=== PATIENT | female | born 1955 | race Caucasian/White ===

== ENCOUNTER → 2018-12-07 15:01 | Outpatient (CLI) | payer BC, SELFPAY ==
--- NOTE | 2018-12-07 | DI.MG.S_ITS ---
BILATERAL DIGITAL SCREENING MAMMOGRAM 3D/2D WITH CAD: 12/07/2018 CLINICAL: Routine screening. Comparison is made to exams dated: 04/17/2017 mammogram, 12/07/2015 mammogram, and 12/02/2014 mammogram - [facility]. The tissue of both breasts is predominantly fatty. Current study was also evaluated with a Computer Aided Detection (CAD) system. There is a focal asymmetry in the right breast at 12 o'clock middle depth. No other significant masses, calcifications, or other findings are seen in either breast. IMPRESSION: INCOMPLETE: NEEDS ADDITIONAL IMAGING EVALUATION The focal asymmetry in the right breast is indeterminate. Additional views with possible ultrasound are recommended. This exam was interpreted at Station ID: [id number]. NOTE: For mammograms, a report in lay terms will be sent to the patient. Approximately 15% of breast malignancies will not be visualized mammographically. In the management of a palpable breast mass, a negative mammogram must not discourage biopsy of a clinically suspicious lesion. Electronically Signed By: Salome hancock/ki:12/07/2018 16:40:38 letter sent: Additional Imaging Needed ACR BI-RADS Category 0: Incomplete 3340F
== END ==
PROVIDERS: PCP Nurse Practitioner Family; Visit Provider Nurse Practitioner Family
DX: Z12.31 Encounter for screening mammogram for malignant neoplasm of breast (principal)
CPT/HCPCS: 77063; 77067

== ENCOUNTER → 2018-12-25 13:35 | Outpatient (CLI) | payer BC, SELFPAY ==
--- NOTE | 2018-12-25 | DI.MG.S_ITS ---
UNILATERAL RIGHT DIGITAL DIAGNOSTIC MAMMOGRAM 3D/2D WITH ADDITIONAL VIEWS: 12/25/2018 CLINICAL: Additional evaluation requested from prior study. Comparison is made to exams dated: 12/07/2018 mammogram, 04/17/2017 mammogram, and 12/07/2015 mammogram - [facility]. The tissue of right breast is predominantly fatty. There is 0.3 cm oval low density focal asymmetry with an indistinct and circumscribed margin in the right breast at 12 o'clock anterior depth. No other significant masses or calcifications are seen in the breast. IMPRESSION: INCOMPLETE: NEEDS ADDITIONAL IMAGING EVALUATION The 0.3 cm oval low density focal asymmetry in the right breast is indeterminate. An ultrasound is recommended. This exam was interpreted at Station ID: [id number]. NOTE: For mammograms, a report in lay terms will be sent to the patient. Approximately 15% of breast malignancies will not be visualized mammographically. In the management of a palpable breast mass, a negative mammogram must not discourage biopsy of a clinically suspicious lesion. Electronically Signed By: William perez/ki:12/25/2018 14:33:16 copy to: Leanna Valenzuela letter sent: Need Ultrasound ACR BI-RADS Category 0: Incomplete 3340F
--- NOTE | 2018-12-25 | DI.US.S_ITS ---
LIMITED ULTRASOUND OF RIGHT BREAST AND AXILLA: 12/25/2018 CLINICAL: Patient returns today to evaluate a density in the right breast. Comparison is made to exams dated: 12/25/2018 mammogram, 12/07/2018 mammogram, 04/17/2017 mammogram, 12/07/2015 mammogram, and 12/02/2014 mammogram - [facility]. Color flow and real-time ultrasound of the right breast 12 o'clock, and axilla regions were performed on the areas of interest. There is 0.2 cm x 0.3 cm x 0.3 cm oval mass with an indistinct margin in the right breast at 12 o'clock anterior depth. This oval mass is hypoechoic. This correlates with mammography findings. Color flow imaging demonstrates that there is no vascularity present. No abnormalities were seen sonographically in the right axilla. IMPRESSION: SUSPICIOUS OF MALIGNANCY The 0.2 cm x 0.3 cm x 0.3 cm oval mass in the right breast is at a low suspicion for malignancy. An ultrasound guided biopsy is recommended. The findings were discussed with the patient at the conclusion of the study by Dr. Walton. This exam was interpreted at Station ID: [id number]. Electronically Signed By: William Youssef M.D. ddreva/:12/25/2018 17:30:48 copy to: Leanna Valenzuela letter sent: Biopsy Required Ultrasound BI-RADS: 4a Suspicious abnormality - low suspicion for malignancy
== END ==
PROVIDERS: PCP Nurse Practitioner Family; Visit Provider Nurse Practitioner Family
DX: R92.8 Other abnormal and inconclusive findings on diagnostic imaging of breast (principal); N63.10 Unspecified lump in the right breast, unspecified quadrant
CPT/HCPCS: 76642; 77065; G0279

== ENCOUNTER → 2019-01-03 07:32 | Outpatient (CLI) | payer BC, SELFPAY ==
--- NOTE | 2019-01-03 | DI.MG.S_ITS ---
PROCEDURE: MM DIAGNOSTIC MAMMO UNILAT RT2D COMPARISON: None. INDICATIONS: RIGHT BREAST MASS FINDINGS: IMPRESSION: Dictated by: Javier Levin M.D. on 01/03/2019 at 15:57 Approved by: Javier Levin M.D. on 01/03/2019 at 15:59
--- NOTE | 2019-01-03 | PATH_ITS ---
[facility] Accession Number: [id number] . 01 Material submitted: . breast - RIGHT BREAST MASS . 01 Diagnosis: Right Breast Mass, Biopsy: Mature fibroadipose tissue with few benign breast ducts with focal apocrine metaplasia; see comment. MNT/01/07/2019 . 01 Comment: The findings may not account for the clinically described mass. Differential diagnosis includes lipoma. Clinical and radiographic correlation is recommended. Findings were discussed with Dr. Castañeda (radiologist) on 01/07/2019 on 4:15 pm. . 01 Electronically signed: . Eden Almazan MD, Pathologist NPI- [id number] . 01 Gross description: . Received one formalin-filled container labeled with the patient's name and labeled right breast mass. Specimen is received with a plastic filter in container, sample loose in container and consists of multiple yellow-ramirez, cylindrical-shaped portions of tissue and blood which aggregate to 2.0 x 0.7 x 0.3 cm. The specimen is filtered and entirely submitted in one cassette. Collection date: 01/03/2019. Possible collection time per requisition: 858. Total fixation time: 12 hours, up to 24. (DC:[id number]) /FRR . 01 Microscopic: . Deeper levels examined. . 01 Pathologist provided ICD-10: N63.10 . 01 CPT . 853378 Performed at: [address], [place], [place] [id number] MD William Nicole MD Phone: [phone]
--- NOTE | 2019-01-03 | DI.US.S_ITS ---
PROCEDURE: US BX BREAST PERC W VAC DEVICE COMPARISON: None. INDICATIONS: RIGHT BREAST MASS FINDINGS: IMPRESSION: Dictated by: Javier Levin M.D. on 01/03/2019 at 15:53 Approved by: Javier Levin M.D. on 01/03/2019 at 15:56
== END ==
PROVIDERS: PCP Nurse Practitioner Family; Visit Provider Internal Medicine
DX: N60.81 Other benign mammary dysplasias of right breast (principal)
CPT/HCPCS: 19083; 77065

== ENCOUNTER → 2019-01-09 12:34 | Outpatient (CLI) | payer BC, SELFPAY ==
--- NOTE | 2019-01-09 | DI.RAD.S_ITS ---
PROCEDURE: XR CERVICAL SPINE 2V OR 3V INDICATIONS: RIGHT ARM PAIN WITH NUMBNESS TECHNIQUE: 3 view(s) of the cervical spine were acquired. COMPARISON: None. FINDINGS: Bones: No fractures or dislocations to the T1 level. The lateral masses of C1 appear intact on the odontoid view. No suspicious bony lesions. Mild to moderate degenerative disc disease at C5-6. Soft tissues: No prevertebral soft tissue swelling. IMPRESSION: Mild to moderate degenerative disc disease C5-6. Dictated by: Darshan Galindo M.D. on 01/09/2019 at 13:49 Approved by: Darshan Galindo M.D. on 01/09/2019 at 13:49
== END ==
PROVIDERS: PCP Nurse Practitioner Family; Visit Provider Internal Medicine
DX: M79.601 Pain in right arm (principal); R20.0 Anesthesia of skin; M50.322 Other cervical disc degeneration at C5-C6 level
CPT/HCPCS: 72040

== ENCOUNTER → 2019-04-04 14:30 | Outpatient (CLI) | payer BC, SELFPAY ==
--- NOTE | 2019-04-04 | DI.RAD.S_ITS ---
PROCEDURE: XR CHEST 2V INDICATIONS: COUGH TECHNIQUE: 2 views of the chest were acquired. COMPARISON: None. FINDINGS: Surgical changes and devices: Cholecystectomy clips. Lungs and pleura: Lungs are clear. No pleural effusions or pneumothorax. Mediastinum: Mediastinal contours are normal. Heart size is normal. Bones and chest wall: No suspicious bony abnormalities. Soft tissues appear unremarkable. IMPRESSION: No consolidation to suggest pneumonia. Dictated by: Santiago Davalos M.D. on 04/04/2019 at 17:29 Approved by: Santiago Davalos M.D. on 04/04/2019 at 17:30
== END ==
PROVIDERS: PCP Nurse Practitioner Family; Visit Provider Nurse Practitioner Family
DX: R05 Cough (principal)
CPT/HCPCS: 71046

== ENCOUNTER → 2019-07-10 14:03 | Outpatient (CLI) | payer BC, SELFPAY ==
--- NOTE | 2019-07-10 | DI.US.S_ITS ---
LIMITED ULTRASOUND OF RIGHT BREAST: 07/10/2019 CLINICAL: 6 month follow-up biopsy. Comparison is made to exams dated: 07/10/2019 mammogram, 01/03/2019 ultrasound biopsy, 01/03/2019 mammogram, 12/25/2018 ultrasound, 12/25/2018 mammogram, and 12/07/2018 mammogram - [facility]. Color flow and real-time ultrasound of the right breast 12 o'clock region were performed. Sotelo scale images of the real-time examination were reviewed. There is redemonstration of a an echogenic circular biopsy clip in the right breast 12 o'clock position 4 cm from the nipple demonstrating posterior shadowing artifact. There is no suspicious vascularity on Doppler imaging. No convincing persistent or recurrent mass is identified at the biopsy site, or along the 12 o'clock position of the right breast. IMPRESSION: PROBABLY BENIGN Redemonstrated biopsy clip in the right breast at 12 o'clock position 4 cm from the nipple demonstrating posterior shadowing artifact. No suspicious vascularity or convincing persistent/recurrent mass is identified at the biopsy site or along the 12 o'clock position of the right breast. A follow-up diagnostic mammogram with possible ultrasound in 6 months is recommended to demonstrate stability, and the patient is also due for bilateral annual mammography at that time. The patient is advised to monitor her breasts and to return sooner for re-evaluation should she feel anything grow or change. This exam was interpreted at Station ID: [id number]. Electronically Signed By: Isaias Plaza M.D. ecl/:07/10/2019 15:30:23 copy to: Leanna Valenzuela letter sent: Followup Recommended Ultrasound BI-RADS: 3 Probably benign
--- NOTE | 2019-07-10 | DI.MG.S_ITS ---
UNILATERAL RIGHT DIGITAL DIAGNOSTIC MAMMOGRAM 3D/2D SHORT-TERM FOLLOW-UP: 07/10/2019 CLINICAL: Patient returns for a 6 month follow up of the right breast. Post biopsy. Comparison is made to exams dated: 01/03/2019 mammogram, 12/25/2018 mammogram, 12/07/2018 mammogram, 01/03/2019 ultrasound biopsy, and 12/25/2018 ultrasound [facility]. There are scattered fibroglandular elements in right breast. Previously identified oval focal asymmetry of the right breast at 12 o'clock position (described as a focal asymmetry in the right breast at 12 o'clock middle depth on screening mammogram of 12/07/18 and 0.3 cm oval low density focal asymmetry with an indistinct and circumscribed margin in the right breast at 12 o'clock anterior depth on diagnostic mammogram of 12/25/18) is no longer well seen on the current exam. There is a biopsy clip in the right breast at 12 o'clock position middle depth. There is an overlying linear scar marker. No other significant masses, calcifications, or other findings are seen in the breast. IMPRESSION: INCOMPLETE: NEEDS ADDITIONAL IMAGING EVALUATION Previously identified oval focal asymmetry of the right breast at 12 o'clock position (described as a focal asymmetry in the right breast at 12 o'clock middle depth on screening mammogram of 12/07/18 and 0.3 cm oval low density focal asymmetry with an indistinct and circumscribed margin in the right breast at 12 o'clock anterior depth on diagnostic mammogram of 12/25/18) is no longer well seen on the current exam, and there is a new biopsy clip in the right breast at 12 o'clock middle depth. A targeted ultrasound is recommended for further evaluation. This exam was interpreted at Station ID: [id number]. NOTE: For mammograms, a report in lay terms will be sent to the patient. Approximately 15% of breast malignancies will not be visualized mammographically. In the management of a palpable breast mass, a negative mammogram must not discourage biopsy of a clinically suspicious lesion. Electronically Signed By: Isaias Plaza M.D. ecl/:07/10/2019 15:01:27 ACR BI-RADS Category 0: Incomplete 3340F
== END ==
PROVIDERS: PCP Nurse Practitioner Family; Visit Provider Internal Medicine
DX: R92.8 Other abnormal and inconclusive findings on diagnostic imaging of breast (principal); N64.89 Other specified disorders of breast
CPT/HCPCS: 76642; 77065; G0279

== ENCOUNTER 2019-10-15 17:44 | Emergency (ER) | payer BC, SELFPAY ==
[2019-10-15 17:51] VITALS: BP 136/91; PULSE 90; RESP 28; TEMP 36.6; O2SAT 100; BMI 36.3
[2019-10-15] MEDS: KETOROLAC 60 MG/2 ML VIAL 30 MG IV (18:12)
[2019-10-15] MEDS: SODIUM CHLORIDE 0.9% 1,000 ML 1000 ML IV (18:12)
[2019-10-15] MEDS: ONDANSETRON 4 MG/2 ML INJ IV (18:13)
--- NOTE | 2019-10-15 18:17 | PC.NURSE ---
Left flank pain with nausea and vomiting and diarrhea starting a few hours ago.
[2019-10-15 18:40] LABS: Add Manual Diff / Slide Review NO; Basophils Absolute Auto 0 /uL (0-100); Basophils Percent Auto 0.2 % (0-2); Eosinophils Absolute Auto 0 /uL (0-450); Eosinophils Percent Auto 0.1 % (2-4); Hematocrit 41.3 % (36-46); Hemoglobin 14.4 g/dL (12.0-16.0); Lymphocytes Absolute Auto 1400 /uL (1100-4500); Lymphocytes Percent Auto 14.3 % (25-40); Mean Corpuscular HGB Conc 34.8 % (30-36); Mean Corpuscular Hemoglobin 31.4 PG (26-34); Mean Corpuscular Volume 90.2 fL (80-100); Monocytes Absolute Auto 400 /uL (0-900); Neutrophils Absolute Auto 8200 /uL (1500-7000); Neutrophils Percent Auto 81.4 % (50-75); Platelet Count 331 X10^3/uL (150-400); Red Blood Cell Count 4.58 X10^6/uL (4.0-5.2); Red Cell Distribution Width 13.6 % (11.6-14.8)
[2019-10-15 18:47] LABS: Prothrombin Time 11.3 SECONDS (10.1-12.7)
[2019-10-15 18:50] LABS: PTT Partial Thromboplastin Tim 30 SECONDS (26.4-36.2)
[2019-10-15 18:51] LABS: Alanine Aminotransferase 25 IU/L (<35); Albumin 5.1 g/dL (3.5-5.0); Albumin Globulin Ratio 1.5 (1.0-2.8); Alkaline Phosphatase 90 U/L (38-126); Aspartate Aminotransferase 35 IU/L (14-36); BUN Creatinine Ratio 21.7 (6-22); Bilirubin Total 0.5 mg/dL (0.2-1.3); Blood Urea Nitrogen 13 mg/dL (7-17); Calcium 10.1 mg/dL (8.4-10.2); Carbon Dioxide 22 mmol/L (22-32); Chloride 101 mmol/L (98-107); Estimated Glomerular Filt Rate > 60.0 mL/min (>60); Globulin 3.5 g/dL (1.7-4.1); Glucose 164 mg/dL (80-110); HEMOLYSIS < 15 (0-50); Lipase 112 U/L (23-300); Potassium 3.5 mmol/L (3.4-5.1); Sodium 139 mmol/L (137-145); Total Protein 8.6 g/dL (6.3-8.2)
--- NOTE | 2019-10-15 18:58 | PC.NURSE ---
Ambulated with assistance to provide urine specimen.
[2019-10-15 19:00] VITALS: BP 170/87; PULSE 82; RESP 17; O2SAT 98
--- NOTE | 2019-10-15 19:06 | DI.CT.S_ITS ---
PROCEDURE: CT ABDOMEN PELVIS W CON INDICATIONS: flank pain, vomiting, pain TECHNIQUE: After the administration of intravenous contrast, 5 mm thick sections acquired from the diaphragm to the symphysis. 5 mm coronal and sagittal reformats were acquired. For radiation dose reduction, the following was used: automated exposure control, adjustment of mA and/or kV according to patient size. COMPARISON: None. FINDINGS: Image quality: Excellent. ABDOMEN: Lung bases: Lung bases are clear. Heart size is normal. Small hiatal hernia. Solid organs: Liver is normal in size and enhancement. Gallbladder is surgically absent. Biliary system is non dilated. Pancreas enhances normally. Spleen is normal in size and enhancement. No adrenal nodules. Kidneys demonstrate normal size and enhancement, without hydronephrosis. There is cortical scarring along the posterior left upper pole cortex. Peritoneum and bowel: Decompression of the entire colon. Multiple diverticuli are seen in the sigmoid colon and there is mild resulting wall thickening. No definite pericolonic inflammation. There is mild mucosal hyperemia involving the rectum the stomach and small bowel loops are normal without obstruction.. No free fluid or air. Nodes and vessels: No retroperitoneal or mesenteric adenopathy by size criteria. Aorta and inferior vena cava are normal in size. Miscellaneous: No ventral hernias. PELVIS: Genitourinary: Bladder wall thickness is normal. The uterus is surgically absent. Ovaries appear normal. There is mild laxity of the pelvic floor. Miscellaneous: No inguinal hernias or adenopathy. Bones: No suspicious bony lesions. No vertebral body compression fractures. Degenerative facet disease in the low lumbar spine. IMPRESSION: 1. Diffuse colonic decompression may be secondary to spasm. 2. Mild mucosal hyperemia wall thickening mainly in the rectum may indicate mild proctitis. Correlate clinically. 3. Sigmoid diverticulosis with mild, wall thickening. Mild acute diverticulitis cannot be excluded. 4. No evidence of urinary calcification or obstruction. 5. Cholecystectomy and hysterectomy. 6. Small hiatal hernia. Dictated by: Yas Dos Santos M.D. on 10/15/2019 at 19:42 Approved by: Yas Dos Santos M.D. on 10/15/2019 at 19:48
[2019-10-15 20:00] VITALS: BP 169/86; PULSE 79; RESP 16; O2SAT 98
[2019-10-15 20:43] VITALS: BP 155/84; PULSE 77; O2SAT 100
[2019-10-15] MEDS: metroNIDAZOLE 250 MG TABLET 500 MG PO (20:56)
[2019-10-15] MEDS: ONDANSETRON 4 MG ODT PREPACK 1 BOTTLE MISC (20:56)
[2019-10-15] MEDS: HYDROCODONE/ACET 5/325 PREPACK 1 BOTTLE MISC (20:56)
[2019-10-15] MEDS: CIPROFLOXACIN 500 MG TABLET PO (20:57)
[2019-10-15] MEDS: ONDANSETRON 4 MG ODT SL (21:03)
--- NOTE | 2019-10-15 21:11 | ED.NAVMDI ---
HPI - Nausea/Vomiting/Diarrhea <RA Acharya - Last Filed: 10/15/19 22:11> General Chief complaint: Nausea/Vomiting/Diarrhea Stated complaint: VOMITING Time Seen by Provider: 10/15/19 18:02 Source: patient and family Mode of arrival: Wheelchair Limitations: no limitations History of Present Illness HPI Narrative: The patient is a 64-year-old female nonsmoker with history of cholecystectomy who presents with a chief complaint of sudden onset left flank pain 2 hours ago. She complains of nausea with vomiting, no fevers, did have some loose stools and diarrhea this morning. She has no history of kidney stones but is suspicious that she has 1. Her children all have kidney stones. She denies any dysuria urgency or frequency or blood in her urine. Related Data Previous Rx's Medication Instructions Recorded ciprofloxacin HCl [Cipro] 500 mg PO BID #20 tab 10/15/19 hydrocodone-acetaminophen [[place]] 1 tab PO Q4-6H PRN #7 tab 10/15/19 metronidazole [Flagyl] 500 mg PO Q8H 10 Days #30 tab 10/15/19 ondansetron 4 mg PO Q6H PRN #20 tab 10/15/19 Allergies Allergy/AdvReac Type Severity Reaction Status Date / Time ibuprofen Allergy Severe breathing Verified 10/15/19 17:56 issues Review of Systems <RA Acharya - Last Filed: 10/15/19 22:11> Review of Systems Narrative: GENERAL: Denies chills, fatigue, malaise, fever, sweats. HEENT: Denies sinus pain, ear pain, sore throat, difficulty swallowing, dizziness. RESPIRATORY: Denies dyspnea, cough, wheezing, hemoptysis, sputum. CARDIOVASCULAR: Denies chest pain, palpitations, orthopnea, edema, GASTROINTESTINAL: See HPI : See HPI MUSCULOSKELETAL: denies weakness, joint pain, or bony pain SKIN: Denies rash, skin lesions, or other NEUROLOGIC: Denies weakness, headache, numbness, change in speech, confusion, seizures, incoordination. PSYCHIATRIC: No concerning psychosocial issues. 12 point review of systems is negative except for those stated above Patient History <RA Acharya - Last Filed: 10/15/19 22:11> Social History Smoking Status: Never smoker Smoking Status: Never smoker Substance Use Type: does not use Exam <CHINO Acharya-BC - Last Filed: 10/15/19 22:11> Narrative Exam Narrative: GENERAL: This is a well-nourished, well-developed patient, appears uncomfortable actively vomiting HEAD: Atraumatic. Normocephalic. No temporal or scalp tenderness. EYES: Pupils equal round and reactive. Extraocular motions intact. No scleral icterus. No injection or drainage. ENT: Nose without bleeding, purulent drainage or septal hematoma. Throat without erythema, tonsillar hypertrophy or exudate. Uvula midline. Airway patent. NECK: Trachea midline. No JVD or lymphadenopathy. Supple, nontender, no meningeal signs. CARDIOVASCULAR: Regular rate and rhythm RESPIRATORY: Clear to auscultation. Breath sounds equal bilaterally. No wheezes, rales, or rhonchi. No cough. No increased respiratory effort. No accessory muscle use. GASTROINTESTINAL: Abdomen soft, non-tender, nondistended. No hepato-splenomegaly, or palpable masses. No guarding. Active bowel sounds all 4 quadrants. EXTREMITIES: No clubbing, cyanosis, or edema. No joint tenderness, effusion, or edema noted. BACK: Nontender without deformity or crepitance. No flank tenderness to left side. NEURO: AOx3. SKIN: No rash or erythema on visible skin Initial Vital Signs Initial Vital Signs: Vital Signs Temperature 97.9 F 10/15/19 17:51 Pulse Rate 90 10/15/19 17:51 Respiratory Rate 28 H 10/15/19 17:51 Blood Pressure 136/91 H 10/15/19 17:51 Pulse Oximetry 100 10/15/19 17:51 <Kimberly Phillip MD - Last Filed: 10/16/19 03:26> Initial Vital Signs Initial Vital Signs: Vital Signs Temperature 97.9 F 10/15/19 17:51 Pulse Rate 90 10/15/19 17:51 Respiratory Rate 28 H 10/15/19 17:51 Blood Pressure 136/91 H 10/15/19 17:51 Pulse Oximetry 100 10/15/19 17:51 Scores <CHINO Acharya-BC - Last Filed: 10/15/19 22:11> GCS Dennard coma scale eye opening: Spontaneous Dennard coma scale verbal response: Orientated [place] coma scale motor response: Obey commands Dennard coma scale total score: 15 Course <Annalisa Turner ROBOTICS TECHNICIAN-BC - Last Filed: 10/15/19 22:11> Orders Ordered: ED Orders 10/15/19 19:06 CT abdomen pelvis w con Stat Discontinued Medications Hydrocodone Bitart/Acetaminophen (Vicodin 5/325 Prepack) 1 bottle MISC SEEINSTR ONE Stop: 10/15/19 20:42 Last Admin: 10/15/19 20:56 Dose: 1 bottle Documented by: IVANIA Ciprofloxacin (Cipro) 500 mg PO NOW ONE Stop: 10/15/19 20:42 Last Admin: 10/15/19 20:57 Dose: 500 mg Documented by: IVANIA Sodium Chloride (Normal Saline 0.9%) 1,000 mls @ 1,000 mls/hr IV BOLUS ONE Stop: 10/15/19 19:04 Last Infusion: 10/15/19 20:52 Dose: 0 mls/hr Documented by: Admin: 10/15/19 18:12 Dose: 1,000 mls/hr Documented by: GEORGE Ketorolac Tromethamine (Toradol) 30 mg IV NOW ONE Stop: 10/15/19 18:06 Last Admin: 10/15/19 18:12 Dose: 30 mg Documented by: GEORGE Metronidazole (Metronidazole) 500 mg PO NOW ONE Stop: 10/15/19 20:42 Last Admin: 10/15/19 20:56 Dose: 500 mg Documented by: IVANIA Morphine Sulfate (Morphine) 4 mg IV NOW ONE Stop: 10/15/19 18:11 Last Admin: 10/15/19 20:47 Dose: Not Given Documented by: GEORGE Ondansetron HCl (Zofran) 4 mg IV NOW ONE Stop: 10/15/19 17:54 Last Admin: 10/15/19 18:13 Dose: 4 mg Documented by: GEORGE Ondansetron HCl (Zofran) 4 mg IV NOW ONE Stop: 10/15/19 18:11 Last Admin: 10/15/19 20:47 Dose: Not Given Documented by: GEORGE Ondansetron HCl (Zofran Odt) 4 mg SL NOW ONE Stop: 10/15/19 20:42 Last Admin: 10/15/19 21:03 Dose: 4 mg Documented by: GEORGE Ondansetron HCl (Zofran Odt Prepack) 1 bottle MISC SEEINSTR ONE Stop: 10/15/19 20:42 Last Admin: 10/15/19 20:56 Dose: 1 bottle Documented by: IVANIA Vital Signs Vital signs: Vital Signs - 8 hr 10/15/19 20:00 10/15/19 20:43 10/15/19 22:21 Pulse Rate 79 77 79 Respiratory Rate 16 17 Blood Pressure [Left Arm] 169/86 H 155/84 H 128/78 Pulse Oximetry 98 100 100 <Kimberly Phillip MD - Last Filed: 10/16/19 03:26> Orders Ordered: ED Orders 10/15/19 19:06 CT abdomen pelvis w con Stat Discontinued Medications Hydrocodone Bitart/Acetaminophen (Vicodin 5/325 Prepack) 1 bottle MISC SEEINSTR ONE Stop: 10/15/19 20:42 Last Admin: 10/15/19 20:56 Dose: 1 bottle Documented by: IVANIA Ciprofloxacin (Cipro) 500 mg PO NOW ONE Stop: 10/15/19 20:42 Last Admin: 10/15/19 20:57 Dose: 500 mg Documented by: IVANIA Sodium Chloride (Normal Saline 0.9%) 1,000 mls @ 1,000 mls/hr IV BOLUS ONE Stop: 10/15/19 19:04 Last Infusion: 10/15/19 20:52 Dose: 0 mls/hr Documented by: Admin: 10/15/19 18:12 Dose: 1,000 mls/hr Documented by: GEORGE Ketorolac Tromethamine (Toradol) 30 mg IV NOW ONE Stop: 10/15/19 18:06 Last Admin: 10/15/19 18:12 Dose: 30 mg Documented by: GEORGE Metronidazole (Metronidazole) 500 mg PO NOW ONE Stop: 10/15/19 20:42 Last Admin: 10/15/19 20:56 Dose: 500 mg Documented by: IVANIA Morphine Sulfate (Morphine) 4 mg IV NOW ONE Stop: 10/15/19 18:11 Last Admin: 10/15/19 20:47 Dose: Not Given Documented by: GEORGE Ondansetron HCl (Zofran) 4 mg IV NOW ONE Stop: 10/15/19 17:54 Last Admin: 10/15/19 18:13 Dose: 4 mg Documented by: GEORGE Ondansetron HCl (Zofran) 4 mg IV NOW ONE Stop: 10/15/19 18:11 Last Admin: 10/15/19 20:47 Dose: Not Given Documented by: GEORGE Ondansetron HCl (Zofran Odt) 4 mg SL NOW ONE Stop: 10/15/19 20:42 Last Admin: 10/15/19 21:03 Dose: 4 mg Documented by: GEORGE Ondansetron HCl (Zofran Odt Prepack) 1 bottle MISC SEEINSTR ONE Stop: 10/15/19 20:42 Last Admin: 10/15/19 20:56 Dose: 1 bottle Documented by: IVANIA Vital Signs Vital signs: Vital Signs - 8 hr 10/15/19 20:00 10/15/19 20:43 10/15/19 22:21 Pulse Rate 79 77 79 Respiratory Rate 16 17 Blood Pressure [Left Arm] 169/86 H 155/84 H 128/78 Pulse Oximetry 98 100 100 MDM - Nausea/Vomiting/Diarrhea <CHINO Acharya- - Last Filed: 10/15/19 22:11> Lab Data Result diagrams: 10/15/19 18:00 10/15/19 18:00 Labs: Lab Results 10/15/19 10/15/19 10/15/19 Range/Units 18:00 18:00 18:00 WBC 10.0 (4.5-11.0) X10^3/uL RBC 4.58 (4.0-5.2) X10^6/uL Hgb 14.4 (12.0-16.0) g/dL Hct 41.3 (36-46) % MCV 90.2 (80-100) fL MCH 31.4 (26-34) PG MCHC 34.8 (30-36) % RDW 13.6 (11.6-14.8) % Plt Count 331 (150-400) X10^3/uL Neut % (Auto) 81.4 H (50-75) % Lymph % (Auto) 14.3 L (25-40) % [place] % (Auto) 4.0 (3-14) % Eos % (Auto) 0.1 L (2-4) % Baso % (Auto) 0.2 (0-2) % Neut # (Auto) 8200 H (0923-4462) /uL Lymph # (Auto) 1400 (1217-8425) /uL [place] # (Auto) 400 (0-900) /uL Eos # (Auto) 0 (0-450) /uL Baso # (Auto) 0 (0-100) /uL PT 11.3 (10.1-12.7) SECONDS INR 1.0 (0.9-1.3) APTT 30 (26.4-36.2) SECONDS Sodium 139 (137-145) mmol/L Potassium 3.5 (3.4-5.1) mmol/L Chloride 101 (98-107) mmol/L Carbon Dioxide 22 (22-32) mmol/L BUN 13 (7-17) mg/dL Creatinine 0.60 (0.52-1.04) mg/dL Estimated GFR > 60.0 (>60) mL/min BUN/Creatinine Ratio 21.7 (6-22) Glucose 164 H (80-110) mg/dL Calcium 10.1 (8.4-10.2) mg/dL Total Bilirubin 0.5 (0.2-1.3) mg/dL AST 35 (14-36) IU/L ALT 25 (<35) IU/L Alkaline Phosphatase 90 (38-126) U/L Total Protein 8.6 H (6.3-8.2) g/dL Albumin 5.1 H (3.5-5.0) g/dL Globulin 3.5 (1.7-4.1) g/dL Albumin/Globulin Ratio 1.5 (1.0-2.8) Lipase 112 (23-300) U/L Urine Dip Bedside Urine Glucose Negative Bedside Urine Bilirubin - Negative Bedside Urine Ketone +++ 80 Urine Specific [place] 1.015 Bedside Urine Occult Blood - Negative Bedside Urine pH 8.0 Bedside Urine Protein +/- 15 Bedside Urine Urobilinogen - Negative Bedside Urine Nitrite - Negative Bedside Urine Leukocytes - Negative Esterase Imaging Data CT scan - abdomen/pelvis: Radiologist's Impression: [address] [id number] [address] Scan Report Signed Patient: Annette Davis LMR#: [id number] : 7Acct:[id number] Age/Sex: 64 / FDate of Service: 10/15/19 Loc: ED Accession Number: [id number] Procedure: CT abdomen pelvis w con Ordering Provider: Annalisa TurnerBC PROCEDURE: CT ABDOMEN PELVIS W CON INDICATIONS: flank pain, vomiting, pain TECHNIQUE: After the administration of intravenous contrast, 5 mm thick sections acquired from the diaphragm to the symphysis. 5 mm coronal and sagittal reformats were acquired. For radiation dose reduction, the following was used: automated exposure control, adjustment of mA and/or kV according to patient size. COMPARISON: None. FINDINGS: Image quality: Excellent. ABDOMEN: Lung bases: Lung bases are clear. Heart size is normal. Small hiatal hernia. Solid organs: Liver is normal in size and enhancement. Gallbladder is surgically absent. Biliary system is non dilated. Pancreas enhances normally. Spleen is normal in size and enhancement. No adrenal nodules. Kidneys demonstrate normal size and enhancement, without hydronephrosis. There is cortical scarring along the posterior left upper pole cortex. Peritoneum and bowel: Decompression of the entire colon. Multiple diverticuli are seen in the sigmoid colon and there is mild resulting wall thickening. No definite pericolonic inflammation. There is mild mucosal hyperemia involving the rectum the stomach and small bowel loops are normal without obstruction.. No free fluid or air. Nodes and vessels: No retroperitoneal or mesenteric adenopathy by size criteria. Aorta and inferior vena cava are normal in size. Miscellaneous: No ventral hernias. PELVIS: Genitourinary: Bladder wall thickness is normal. The uterus is surgically absent. Ovaries appear normal. There is mild laxity of the pelvic floor. Miscellaneous: No inguinal hernias or adenopathy. Bones: No suspicious bony lesions. No vertebral body compression fractures. Degenerative facet disease in the low lumbar spine. IMPRESSION: 1. Diffuse colonic decompression may be secondary to spasm. 2. Mild mucosal hyperemia wall thickening mainly in the rectum may indicate mild proctitis. Correlate clinically. 3. Sigmoid diverticulosis with mild, wall thickening. Mild acute diverticulitis cannot be excluded. 4. No evidence of urinary calcification or obstruction. 5. Cholecystectomy and hysterectomy. 6. Small hiatal hernia. Dictated by: Yas Dos Santos M.D. on 10/15/2019 at 19:42 Approved by: Yas Dos Santos M.D. on 10/15/2019 at 19:48 MDM Narrative Medical decision making narrative: The patient is a 64-year-old female who presents with a chief complaint of sudden onset of left flank pain associated nausea vomiting, loose stools in the morning. She has no dysuria, no hematuria on exam. Given the severity of her symptoms, we elected to do a CT abdomen pelvis. She is found to have mild wall thickening and cannot rule out acute diverticulitis. She also has hyperemia in the rectum that indicating mild proctitis. I discussed infectious versus inflammatory diverticulitis and we elected to pursue with antibiotics time. She is able to tolerate p.o. antibiotics, I did discharge with prescriptions of Zofran as well as [place] for pain. She was given IV fluids and Zofran in the emergency department. I discussed at length that she needs to follow up with primary care provider in the next few days and come back to the emergency department for any acute concerns. She is able tolerate p.o. fluids in the ER, I discussed at length dietary changes. Patient has been of no questions or concerns upon discharge and state understanding of return precautions as well as follow-up care. <Kimberly Phillip MD - Last Filed: 10/16/19 03:26> Lab Data Labs: Lab Results 10/15/19 10/15/19 10/15/19 Range/Units 18:00 18:00 18:00 WBC 10.0 (4.5-11.0) X10^3/uL RBC 4.58 (4.0-5.2) X10^6/uL Hgb 14.4 (12.0-16.0) g/dL Hct 41.3 (36-46) % MCV 90.2 (80-100) fL MCH 31.4 (26-34) PG MCHC 34.8 (30-36) % RDW 13.6 (11.6-14.8) % Plt Count 331 (150-400) X10^3/uL Neut % (Auto) 81.4 H (50-75) % Lymph % (Auto) 14.3 L (25-40) % [place] % (Auto) 4.0 (3-14) % Eos % (Auto) 0.1 L (2-4) % Baso % (Auto) 0.2 (0-2) % Neut # (Auto) 8200 H (1783-4127) /uL Lymph # (Auto) 1400 (6181-6954) /uL [place] # (Auto) 400 (0-900) /uL Eos # (Auto) 0 (0-450) /uL Baso # (Auto) 0 (0-100) /uL PT 11.3 (10.1-12.7) SECONDS INR 1.0 (0.9-1.3) APTT 30 (26.4-36.2) SECONDS Sodium 139 (137-145) mmol/L Potassium 3.5 (3.4-5.1) mmol/L Chloride 101 (98-107) mmol/L Carbon Dioxide 22 (22-32) mmol/L BUN 13 (7-17) mg/dL Creatinine 0.60 (0.52-1.04) mg/dL Estimated GFR > 60.0 (>60) mL/min BUN/Creatinine Ratio 21.7 (6-22) Glucose 164 H (80-110) mg/dL Calcium 10.1 (8.4-10.2) mg/dL Total Bilirubin 0.5 (0.2-1.3) mg/dL AST 35 (14-36) IU/L ALT 25 (<35) IU/L Alkaline Phosphatase 90 (38-126) U/L Total Protein 8.6 H (6.3-8.2) g/dL Albumin 5.1 H (3.5-5.0) g/dL Globulin 3.5 (1.7-4.1) g/dL Albumin/Globulin Ratio 1.5 (1.0-2.8) Lipase 112 (23-300) U/L Urine Dip Bedside Urine Glucose Negative Bedside Urine Bilirubin - Negative Bedside Urine Ketone +++ 80 Urine Specific [place] 1.015 Bedside Urine Occult Blood - Negative Bedside Urine pH 8.0 Bedside Urine Protein +/- 15 Bedside Urine Urobilinogen - Negative Bedside Urine Nitrite - Negative Bedside Urine Leukocytes - Negative Esterase Discharge Plan Departure Patient Disposition: Home Clinical Impression: Diverticulitis Nausea & vomiting Qualifiers: Vomiting type: unspecified Vomiting Intractability: non-intractable Qualified Code(s): R11.2 - Nausea with vomiting, unspecified Discharge Date/Time: 10/15/19 22:30 Instructions: DI for Diverticulitis, DI for Nausea -- Adult, DI for Vomiting -- Adult Activity Restrictions/Additional Instructions: Your imaging and exam is concerning for early diverticulitis. We have elected to treat you with antibiotics at this point time. It is important that you start with a clear liquid diet. Please call your PCPs office tomorrow and arrange follow-up. I would like you to be seen in the next few days. Please come back to the emergency department for any acute concerns I've sent 2 prescriptions of antibiotics as well as nausea and pain medication to [facility] in [place] I have given you a prescription of a narcotic for pain. Be aware that this can be constipating and sedating. I encouraged taking with a stool softener, pushing fluids and fiber. Do not take and drive, operate heavy machinery, etc. Do not combine it with any other sedating substances such as alcohol. The combination of narcotics and alcohol and/or other sedatives can be lethal. Please be aware that we do not provide refills of controlled substances in the emergency department. Please follow up with her primary care provider. Prescriptions: New ondansetron 4 mg tablet,disintegrating 4 mg PO Q6H PRN (Reason: nausea and vomiting) Qty: 20 RF: 0 hydrocodone-acetaminophen [[place]] 5-325 mg tablet 1 tab PO Q4-6H PRN (Reason: pain) Qty: 7 RF: 0 metronidazole [Flagyl] 500 mg tablet 500 mg PO Q8H 10 Days Qty: 30 RF: 0 ciprofloxacin HCl [Cipro] 500 mg tablet 500 mg PO BID Qty: 20 RF: 0 Referrals: Carissa Harvey ARNP [Primary Care Provider] - Leanna Valenzuela ARNP [[facility]] -
--- NOTE | 2019-10-15 22:19 | PC.NURSE ---
Patient reports she is still nauseated. is discharged but wants to wait a few more minutes.
[2019-10-15 22:21] VITALS: BP 128/78; PULSE 79; RESP 17; O2SAT 100
== END 2019-10-15 22:30 | disposition home or self-care (01) ==
PROVIDERS: Emergency Medicine; Emergency Provider Nurse Practitioner Family; PCP Nurse Practitioner Family
DX: K57.92 Diverticulitis of intestine, part unspecified, without perforation or abscess without bleeding (principal); R11.2 Nausea with vomiting, unspecified
CPT/HCPCS: 36415; 74177; 80053; 81003; 83690; 85025; 85610; 85730; 96361; 96374; 96375; 99284; J1885; J2405; Q9967

== ENCOUNTER → 2020-05-25 08:32 | Outpatient (CLI) | payer BC, SELFPAY ==
--- NOTE | 2020-05-25 08:59 | DI.MG.S_ITS ---
Patient Name: JAMISON NEVAREZ date: 1955 Sex: F Attending Physician: Nicolas Indications: Date: 05/25/2020 08:49 At the request of: YUDELKA FULLRE Procedure: MM diagnostic mammo BI BILATERAL DIGITAL DIAGNOSTIC MAMMOGRAM 3D/2D: 05/25/2020 CLINICAL: Short follow up, due bilaterally. Comparison is made to exams dated: 07/10/2019 mammogram, 01/03/2019 mammogram, 12/25/2018 mammogram, 12/07/2018 mammogram, and 04/17/2017 mammogram - [facility]. There are scattered fibroglandular elements in both breasts. There is a biopsy site marker on the right breast at 12 o'clock. There is no associated mass or developing asymmetry. No significant masses, calcifications, or other findings are seen in either breast. IMPRESSION: NEGATIVE No suspicious findings in the region of biopsy marker at 12:00 in the right breast. There is no mammographic evidence of malignancy in either breast. Return to annual mammogram screening schedule is recommended. Findings and recommendations were conveyed to the patient at time of exam. This exam was interpreted at Station ID: [id number]. NOTE: For mammograms, a report in lay terms will be sent to the patient. Approximately 15% of breast malignancies will not be visualized mammographically. In the management of a palpable breast mass, a negative mammogram must not discourage biopsy of a clinically suspicious lesion. Electronically Signed By: Yas griggs/:05/25/2020 09:16:24 letter sent: Normal Exam ACR BI-RADS Category 1: Negative [id number]
== END ==
PROVIDERS: PCP Internal Medicine; Referring Provider Internal Medicine; Visit Provider Internal Medicine
DX: R92.8 Other abnormal and inconclusive findings on diagnostic imaging of breast (principal)
CPT/HCPCS: 77066; G0279

== ENCOUNTER → 2021-07-15 14:09 | Outpatient (CLI) | payer BC, SELFPAY ==
--- NOTE | 2021-07-15 | DI.MG.S_ITS ---
BILATERAL DIGITAL SCREENING MAMMOGRAM 3D/2D WITH CAD: 07/15/2021 CLINICAL: Routine screening. Comparison is made to exams dated: 05/25/2020 mammogram, 07/10/2019 mammogram, 01/03/2019 mammogram, 12/07/2018 mammogram, 04/17/2017 mammogram, and 12/25/2018 mammogram - [facility]. The tissue of both breasts is predominantly fatty. Current study was also evaluated with a Computer Aided Detection (CAD) system. There is a biopsy clip in the right breast. No significant masses, calcifications, or other findings are seen in either breast. There has been no significant interval change. IMPRESSION: NEGATIVE There is no mammographic evidence of malignancy. A 1 year screening mammogram is recommended. This exam was interpreted at Station ID: [id number]. NOTE: For mammograms, a report in lay terms will be sent to the patient. Approximately 15% of breast malignancies will not be visualized mammographically. In the management of a palpable breast mass, a negative mammogram must not discourage biopsy of a clinically suspicious lesion. Electronically Signed By: Santiago fletcher/ki:07/15/2021 14:54:21 letter sent: Normal Exam ACR BI-RADS Category 1: Negative [id number]
== END ==
PROVIDERS: PCP Internal Medicine; Referring Provider Internal Medicine; Visit Provider Internal Medicine
DX: Z12.31 Encounter for screening mammogram for malignant neoplasm of breast (principal)
CPT/HCPCS: 77063; 77067

== ENCOUNTER → 2021-08-13 09:35 | Outpatient (CLI) | payer BC, SELFPAY ==
--- NOTE | 2021-08-13 | DI.RAD.S_ITS ---
PROCEDURE: XR LUMBAR SPINE 2-3V INDICATIONS: low back pian/right SI joint pain TECHNIQUE: 3 views of the lumbar spine were acquired. COMPARISON: [facility], CT, CT ABDOMEN PELVIS W CON, 10/15/2019, 19:18. FINDINGS: Bones: 5 [id number] vertebrae are present. Trace multilevel retrolisthesis and there is trace spondylolisthesis L4-L5 and L5-S1. Multilevel disc degeneration, most notably and severe at the L1-L2 and L5-S1 levels. Moderate L4-L5 and L5-S1 facet joint arthropathy. No vertebral body compression fractures. No suspicious bony lesions. Soft tissues: Overlying bowel gas pattern is normal. No suspicious soft tissue calcifications. Cholecystectomy clips. IMPRESSION: Multilevel spondylosis. Dictated by: Quoc Puentes [facility] Interpreted: Javier Levin MD on 08/13/2021 at 10:10 Transcribed by: PINA on 08/13/2021 at 10:12 Approved by: Javier Levin M.D. on 08/13/2021 at 11:23
== END ==
PROVIDERS: PCP Internal Medicine; Referring Provider Internal Medicine; Visit Provider Internal Medicine
DX: M47.817 Spondylosis without myelopathy or radiculopathy, lumbosacral region (principal); M47.816 Spondylosis without myelopathy or radiculopathy, lumbar region; M53.3 Sacrococcygeal disorders, not elsewhere classified
CPT/HCPCS: 72100

== ENCOUNTER → 2021-09-14 13:34 | Outpatient (CLI) | payer BC, SELFPAY ==
--- NOTE | 2021-09-14 13:36 | DI.MRI.S_ITS ---
PROCEDURE: MR LUMBAR SPINE WO CON INDICATIONS: Sacrococcygeal disorders, not elsewhere classified TECHNIQUE: Noncontrast sagittal T1 spin echo and T2 fast echo, sagittal STIR, axial T1 and T2 fast spin echo through the lumbar spine. In cases with scoliosis, additional coronal T2 fast spin echo may be performed. COMPARISON: [facility], CR, XR LUMBAR SPINE 2-3V, 08/13/2021, 9:45. FINDINGS: Image quality: Excellent. Alignment and Curvature: There is mild L1-L2, L2-L3 and L3-L4 retrolisthesis. There is mild L4-L5 and L5-S1 anterolisthesis. Bone Marrow: Marrow is of normal overall signal. No acute vertebral body compression fractures. No sacral fractures. Spinal Cord: Conus medullaris terminates at the L2-L3 disc level. Visualized cord demonstrates normal signal and size. Paraspinous Soft Tissues: No paravertebral masses. T12-L1: Normal appearance. L1-L2: Loss of disc signal and height. Moderate, diffuse disc bulge. Mild narrowing of the central canal. Mild bilateral neural foraminal narrowing. No neural compression. L2-L3: Loss of disc signal and height. Mild to moderate diffuse disc bulge. Mild bilateral facet hypertrophy. Mild narrowing of the central canal. Mild to moderate bilateral neural foraminal narrowing. No neural compression. L3-L4: Loss of disc signal. Mild to moderate diffuse disc bulge. Mild bilateral facet hypertrophy. Mild narrowing of the central canal. Mild to moderate bilateral neural foraminal narrowing. No neural compression. L4-L5: Loss of disc signal. Mild, diffuse disc bulge. Moderate to severe bilateral facet hypertrophy. Moderate narrowing of the central canal. [id number] right and moderate to severe left neural foraminal narrowing with slight compression of the exiting left L4 nerve root. L5-S1: Loss of disc signal and height. Minimal, diffuse disc bulge. Moderate bilateral facet hypertrophy. No central stenosis. Mild to moderate bilateral neural foraminal narrowing. No neural compression. Fissures noted in the anterior and posterior annulus. IMPRESSION: 1. Multilevel degenerative disc disease. 2. Multilevel facet arthropathy. 3. No severe central canal narrowing. 4. Moderate to severe left L4-L5 neural foraminal narrowing with slight compression of the exiting left L4 nerve root. Please correlate with clinical data. 5. L5-S1 disc annulus fissures. Dictated by: Judy Galeana MD, PhD on 09/14/2021 at 16:44 Approved by: Judy Galeana MD, PhD on 09/14/2021 at 16:49
== END ==
PROVIDERS: PCP Internal Medicine; Referring Provider Internal Medicine; Visit Provider Internal Medicine
DX: M53.3 Sacrococcygeal disorders, not elsewhere classified (principal); M47.817 Spondylosis without myelopathy or radiculopathy, lumbosacral region; M47.816 Spondylosis without myelopathy or radiculopathy, lumbar region; M51.36 Other intervertebral disc degeneration, lumbar region; M48.061 Spinal stenosis, lumbar region without neurogenic claudication; M48.07 Spinal stenosis, lumbosacral region
CPT/HCPCS: 72148

== ENCOUNTER → 2022-07-19 12:24 | Outpatient (CLI) | payer MEDICARE, BC, SELFPAY ==
--- NOTE | 2022-07-19 | DI.MG.S_ITS ---
BILATERAL DIGITAL SCREENING MAMMOGRAM 3D/2D WITH CAD: 07/19/2022 CLINICAL: Routine screening. Comparison is made to exams dated: 07/15/2021 mammogram, 05/25/2020 mammogram, 07/10/2019 mammogram, 01/03/2019 mammogram, and 12/07/2018 mammogram - [facility]. Both breasts are almost entirely fatty (category a/<25% glandular tissue). Current study was also evaluated with a Computer Aided Detection (CAD) system. There is a biopsy clip in the right breast. No significant masses, calcifications, or other findings are seen in either breast. There has been no significant interval change. IMPRESSION: BENIGN There is no mammographic evidence of malignancy. A 1 year screening mammogram is recommended. Based on the Tyrer Cuzick model (a risk assessment model) the patient's lifetime risk is 3.7% and her 10 year risk is 1.8%. According to the ACR, ACS, and NCCN guidelines, an annual breast MRI exam along with mammogram is recommended if the patient's lifetime risk is 20% or greater. This exam was interpreted at Station ID: [id number]. NOTE: For mammograms, a report in lay terms will be sent to the patient. Approximately 15% of breast malignancies will not be visualized mammographically. In the management of a palpable breast mass, a negative mammogram must not discourage biopsy of a clinically suspicious lesion. Electronically Signed By: Sandor lee/ki:07/19/2022 13:28:07 letter sent: Normal Exam ACR BI-RADS Category 2: Benign Finding(s) 3342F
== END ==
PROVIDERS: PCP Internal Medicine; Referring Provider Internal Medicine; Visit Provider Internal Medicine
DX: Z12.31 Encounter for screening mammogram for malignant neoplasm of breast (principal)
CPT/HCPCS: 77063; 77067

== ENCOUNTER → 2022-08-08 14:00 | Outpatient (CLI) | payer MEDICARE, BC, SELFPAY ==
--- NOTE | 2022-08-08 | DI.NM.S_ITS ---
PROCEDURE: NM EXERCISE TREADMILL NON NUC COMPARISON: None. INDICATIONS: CHEST PAIN FINDINGS: Rest ECG sinus rhythm. David protocol 7:11, maximum heart rate 149 bpm (96% peak predicted), maximum blood pressure 218/118, 7.2 METS, JOHN -11%. Stress ECG sinus tachycardia, no ST segment changes, rare PVCs. The patient did not complain of exercise-induced chest pain. IMPRESSION: No evidence of exercise-induced ischemia. Hypertensive response to exercise. Good exercise capacity. Dictated by: Yue Willis D.O. on 08/08/2022 at 15:50 Approved by: Yue Willis D.O. on 08/08/2022 at 15:52
[2022-08-08 16:22] LABS: COVID19 -Nasal RAPID Negative (Negative)
== END ==
PROVIDERS: PCP Internal Medicine; Referring Provider Internal Medicine; Visit Provider Internal Medicine
DX: R07.89 Other chest pain (principal); Z20.822 Contact with and (suspected) exposure to COVID-19
CPT/HCPCS: 87635; 93017

== ENCOUNTER → 2023-08-03 | Outpatient (CLI) | payer MEDICARE, BC, SELFPAY ==
--- NOTE | 2023-08-03 | DI.RAD.S_ITS ---
Bone Density Report Name: JAMISON NEVAREZ Age: 68 Sex: Female Ethnicity: White Date of : 1955 Indication: postmenopausal; screening for osteoporosis; Referring Provider: YUDELKA FULLER Study: Bone densitometry was performed. Exam Date: August 03, 2023 Accession number: [id number] Bone Density: Region BMD T-score Z-score Classification AP Spine(L1-L4) 1.426 3.4 5.3 Normal Femoral Neck (Left) 1.092 2.2 3.8 Normal Total Hip (Left) 1.278 2.8 4.1 Normal Femoral Neck (Right) 1.130 2.5 4.1 Normal Total Hip (Right) 1.265 2.6 4.0 Normal Total Hip Mean 1.271 2.7 4.1 Normal World Health Organization criteria for BMD impression classify patients as: Normal (T-score at or above -1.0), Osteopenia (T-score between -1.0 and -2.5), or Osteoporosis (T-score at or below -2.5). 10-year Fracture Risk: FRAX not reported because: All T-scores for Spine Total, Hip Total, Femoral Neck at or above -1.0 Previous Exams: -- Region Exam Age BMD T-score BMD Change BMD Change Date g/cm2 vs Baseline vs Previous -- AP Spine (L1-L4) 08/03/2023 68 1.426 3.4 0.033 (2.4%)# 0.033 (2.4%)# 12/17/2014 59 1.393 3.1 Total Hip(Left) 08/03/2023 68 1.278 2.8 0.002 (0.2%)# 0.002 (0.2%)# 12/17/2014 59 1.276 2.7 Total Hip(Right) 08/03/2023 68 1.265 2.6 -0.012 (-1.0%)# -0.012 (-1.0%)# 12/17/2014 59 1.277 2.7 -- *Denotes significance at 95% confidence level, LSC for AP Spine = 0.022 g/cm2, LSC for Total Hip = 0.027 g/cm2 # Denotes dissimilar scan types or analysis methods Impression: The patient has normal bone mass. No significant bone loss was observed. Discussion: LOW RISK OF FRACTURE; BONE DENSITY IS WELL ABOVE THE MINIMUM DESIRABLE LEVEL AND ABOVE AVERAGE FOR AGE AND SEX AT ALL SKELETAL SITES TESTED. This person's bone density is above expected limits for age and sex. This is rarely clinically significant, but should be pursued if there are significant musculoskeletal complaints. The patient should follow a healthful lifestyle (good nutrition with adequate calcium and vitamin D, and appropriate weight-bearing exercise). Follow-Up: Consider repeating this study in 5 years or sooner if there is some new clinical indication. Reported by: MICHELLE LO M.D. on 08/03/2023 11:56:00 AM.
--- NOTE | 2023-08-03 | DI.MG.S_ITS ---
BILATERAL DIGITAL SCREENING MAMMOGRAM 3D/2D WITH CAD: 08/03/2023 CLINICAL: Routine screening. Comparison is made to exams dated: 07/19/2022 mammogram, 07/15/2021 mammogram, and 05/25/2020 mammogram - [facility]. Both breasts are almost entirely fatty (category a/<25% glandular tissue). Current study was also evaluated with a Computer Aided Detection (CAD) system. There is a biopsy clip in the right breast. No significant masses, calcifications, or other findings are seen in either breast. There has been no significant interval change. IMPRESSION: NEGATIVE There is no mammographic evidence of malignancy. A 1 year screening mammogram is recommended. Based on the Tyrer Cuzick model (a risk assessment model) the patient's lifetime risk is 3.5% and her 10 year risk is 1.7%. According to the ACR, ACS, and NCCN guidelines, an annual breast MRI exam along with mammogram is recommended if the patient's lifetime risk is 20% or greater. This exam was interpreted at Station ID: [id number]. NOTE: For mammograms, a report in lay terms will be sent to the patient. Approximately 15% of breast malignancies will not be visualized mammographically. In the management of a palpable breast mass, a negative mammogram must not discourage biopsy of a clinically suspicious lesion. Electronically Signed By: Yas girggs/ki:08/03/2023 16:58:35 letter sent: Normal Exam ACR BI-RADS Category 1: Negative 3341F
== END ==
LOC: MAMMO 11:18
PROVIDERS: PCP Internal Medicine; Referring Provider Internal Medicine; Visit Provider Internal Medicine
DX: Z12.31 Encounter for screening mammogram for malignant neoplasm of breast (principal); Z78.0 Asymptomatic menopausal state; Z13.820 Encounter for screening for osteoporosis; Z90.710 Acquired absence of both cervix and uterus; Z92.23 Personal history of estrogen therapy
CPT/HCPCS: 77063; 77067; 77080

== ENCOUNTER → 2024-01-09 09:16 | Outpatient (CLI) | payer MEDICARE, BC, SELFPAY ==
--- NOTE | 2024-01-09 | DI.MG.S_ITS ---
UNILATERAL RIGHT DIGITAL DIAGNOSTIC MAMMOGRAM 3D/2D: 01/09/2024 CLINICAL: Left breast pain. Comparison is made to exams dated: 08/03/2023 mammogram, 07/19/2022 mammogram, and 07/15/2021 mammogram - [facility]. The right breast is almost entirely fatty (category a/<25% glandular tissue). No significant masses, calcifications, or other findings are seen in the breast. Specifically, no finding to explain the patient's pain. Benign biopsy marker is present. IMPRESSION: INCOMPLETE: NEEDS ADDITIONAL IMAGING EVALUATION There is no abnormality seen in the right breast to correspond with the pain in the upper outer quadrant. Ultrasound is recommended for full evaluation of this area. This was performed immediately following this exam. Based on the Tyrer Cuzick model (a risk assessment model) the patient's lifetime risk is 3.5% and her 10 year risk is 1.7%. According to the ACR, ACS, and NCCN guidelines, an annual breast MRI exam along with mammogram is recommended if the patient's lifetime risk is 20% or greater. This exam was interpreted at Station ID: [id number]. NOTE: For mammograms, a report in lay terms will be sent to the patient. Approximately 15% of breast malignancies will not be visualized mammographically. In the management of a palpable breast mass, a negative mammogram must not discourage biopsy of a clinically suspicious lesion. Electronically Signed By: Yas griggs/:01/09/2024 10:45:00 Entry: - 01/09/2024 14:49:15 ACR BI-RADS Category 0: Incomplete 3340F
--- NOTE | 2024-01-09 09:18 | DI.US.S_ITS ---
LIMITED ULTRASOUND OF RIGHT BREAST: 01/09/2024 CLINICAL: Occasional right breast pain. Comparison is made to exams dated: 01/09/2024 mammogram, 08/03/2023 mammogram, 07/19/2022 mammogram, 07/15/2021 mammogram, 05/25/2020 mammogram, and 07/10/2019 [facility]. Color flow and real-time ultrasound of the right breast 10-11 o'clock region were performed. Sotelo scale images of the real-time examination were reviewed. No significant abnormalities were seen sonographically in the right breast. Specifically, no finding to explain the patient's pain. IMPRESSION: NEGATIVE There is no sonographic correlate to the patient's pain and no evidence of malignancy. Return to annual mammogram screening schedule is recommended. Findings and recommendations were conveyed to the patient at time of exam. This exam was interpreted at Station ID: [id number]. Electronically Signed By: Yas griggs/:01/09/2024 12:14:12 letter sent: Normal Exam Ultrasound BI-RADS: 1 Negative
== END ==
LOC: MAMMO 09:16
PROVIDERS: PCP Internal Medicine; Referring Provider Internal Medicine; Visit Provider Internal Medicine
DX: R92.2 Inconclusive mammogram; N64.4 Mastodynia; R92.311 Mammographic fatty tissue density, right breast
CPT/HCPCS: 76642; 77065; G0279

== ENCOUNTER → 2025-01-10 16:58 | Outpatient (CLI) | payer MEDICARE, BC, SELFPAY ==
--- NOTE | 2025-01-10 17:01 | DI.MG.S_ITS ---
MM screening mammo BI: 01/10/2025. BI-RADS: 2 CLINICAL: 69-year old female for bilateral screening mammogram. Tyrer-Cuzick lifetime risk of 2.4%. No personal or first-degree family history of breast cancer. The patient had a prior right breast biopsy. PRIOR EXAMS 01/09/2024, 08/03/2023, 07/19/2022, 07/15/2021, 05/25/2020, 07/10/2019, 01/03/2019, 12/25/2018, 12/07/2018, 04/17/2017, 12/07/2015. MAMMOGRAPHY TECHNIQUE: 2D and 3D (tomosynthesis) digital mammographic views obtained, with additional images as needed for full coverage. Current study was also evaluated with a Computer Aided Detection (CAD) system. DENSITY A. The breasts are almost entirely fatty. MAMMOGRAPHY FINDINGS Right: Biopsy marker present on the right. There are no suspicious masses, calcifications, or other findings in the breast. Left: No suspicious mass, asymmetry, microcalcification, or other abnormality seen. IMPRESSION: Right * No evidence of malignancy with benign findings. Left * No evidence of malignancy. RECOMMENDATIONS Bilateral * Annual screening mammography. OVERALL ASSESSMENT CATEGORY BI-RADS-2: Benign. [employer] recommends annual screening mammography beginning at age 40 for women with average risk of breast cancer. ELECTRONICALLY SIGNED: Mike Castañeda M.D. on 01/13/2025 at 10:47:33 AM PT Interpreting Station ID: [id number]
== END ==
PROVIDERS: PCP Registered Nurse; Referring Provider Internal Medicine; Visit Provider Internal Medicine
DX: Z12.31 Encounter for screening mammogram for malignant neoplasm of breast (principal)
CPT/HCPCS: 77063; 77067

== ENCOUNTER → 2025-01-13 09:09 | Outpatient (CLI) | payer MEDICARE, BC, SELFPAY ==
--- NOTE | 2025-01-13 10:28 | DI.MRI.S_ITS ---
PROCEDURE: MR LUMBAR SPINE WO CON INDICATIONS: Lumbar radiculopathy TECHNIQUE: Noncontrast sagittal T1 spin echo and T2 fast echo, sagittal STIR, and T2 fast spin echo through the lumbar spine. In cases with scoliosis, additional coronal T2 fast spin echo may be performed. COMPARISON: [facility], MR, MR LUMBAR SPINE WO CON, 09/14/2021, 13:56. FINDINGS: Image quality: Excellent. Alignment and Curvature: Mild retrolisthesis of L1 on L2, L2 on L3 and L3 on L4. Mild anterolisthesis of L4 on L5 and L5 on S1. Bone Marrow: Marrow is of normal overall signal. No acute vertebral body compression fractures. Spinal Cord: Conus medullaris terminates at the L2-L3 level. Visualized cord demonstrates normal signal and size. Paraspinous Soft Tissues: No paravertebral masses. T12-L1: Normal appearance. L1-L2: Disc desiccation and moderate height loss. Diffuse disc bulge. Facet arthropathy. Mild central canal stenosis. No significant neural foraminal stenosis. L2-L3: Disc desiccation and mild height loss. Mild diffuse disc bulge. Facet arthropathy. Mild central canal stenosis. Iqrw-sc-qbegyaad bilateral neural foraminal stenosis. L3-L4: Disc desiccation and mild height loss. Mild diffuse disc bulge. Facet arthropathy. Mild central canal stenosis. Scjy-gf-vuchmyhn bilateral neural foraminal stenosis is stable. L4-L5: Disc desiccation. Facet arthropathy and thickening of ligamentum flavum. Mild central canal stenosis. Rxtt-yy-cqogrkge right and moderate to severe left neural foraminal stenosis is stable. L5-S1: Disc desiccation and moderate height loss. Minimal disc bulge. Facet arthropathy. No central canal stenosis. Bhiz-wh-ibycmfsk bilateral neural foraminal stenosis is stable. IMPRESSION: 1. Stable multilevel degenerative changes of the lumbar spine as described above. 2. Multilevel mild central canal stenosis. 3. Moderate to severe left neural foraminal stenosis at L4-5. Dictated by: Carlos Enrique Raphael M.D. on 01/13/2025 at 14:16 Approved by: Carlos Enrique Raphael M.D. on 01/13/2025 at 14:21
== END ==
PROVIDERS: PCP Registered Nurse; Referring Provider Registered Nurse; Visit Provider Registered Nurse
DX: M47.26 Other spondylosis with radiculopathy, lumbar region (principal); M47.27 Other spondylosis with radiculopathy, lumbosacral region; M48.061 Spinal stenosis, lumbar region without neurogenic claudication; M48.07 Spinal stenosis, lumbosacral region
CPT/HCPCS: 72148